=== PATIENT | female | born 1995 | race African-American/Black ===

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

== ENCOUNTER → 2017-02-23 | Outpatient (CLI) | payer MEDICAID ==
[2017-02-23 20:23] LABS: CHLAM PCR NOT DETECTED (NOT DETECT)
== END ==
LOC: LAB 18:44
PROVIDERS: ATTEND Emergency Medicine
DX: R30.0 Dysuria (principal)
CPT/HCPCS: 87086; 87491; 87591

== ENCOUNTER 2017-04-21 07:42 | Emergency (ER) | payer MEDICAID ==
--- NOTE | 2017-04-21 07:54 | ER Document Report ---
ED General <MARITZA OWEN - Last Filed: 04/21/17 09:43> - General Mode of Arrival: Medic Information source: Patient TRAVEL OUTSIDE OF THE [place] IN LAST 30 DAYS: No - HPI Onset: Just prior to arrival Onset/Duration: Sudden Quality of pain: No pain Severity: Mild Pain Level: Denies Associated symptoms: Other Exacerbated by: Denies Relieved by: Denies Similar symptoms previously: No Recently seen / treated by doctor: No <VLADISLAV RANGEL - Last Filed: 04/21/17 09:54> - General Stated Complaint: POSSIBLE OVERDOSE Time Seen by Provider: 04/21/17 07:48 Notes: 22-year-old female who got into an argument with her boyfriend presents after overdosing on her fluoxetine 20 mg at approximately 7 AM this morning patient herself denies any complaints is easily arousable. (VLADISLAV RANGEL) - Related Data Allergies/Adverse Reactions: gain laundry detergent Allergy (Uncoded 04/11/17 11:51) Past Medical History - General Information source: Relative - sisterKonstantin is bedside <MARITZA OWEN - Last Filed: 04/21/17 09:43> - Social History Smoking Status: Never Smoker Cigarette use (# per day): No Chew tobacco use (# tins/day): No Smoking Education Provided: No Family History: None Renal/ Medical History: Denies: Hx Peritoneal Dialysis - Immunizations Immunizations up to date: Yes Hx Diphtheria, Pertussis, Tetanus Vaccination: No <VLADISLAV RANGEL - Last Filed: 04/21/17 09:54> Review of Systems <MARITZA OWEN - Last Filed: 04/21/17 09:43> <VLADISLAV RANGEL - Last Filed: 04/21/17 09:54> - Review of Systems Notes: REVIEW OF SYSTEMS: CONSTITUTIONAL : Denies fever, chills, or sweats. Denies recent illness. EENT: Denies eye, ear, throat, or mouth pain or symptoms. Denies nasal or sinus congestion or discharge. Denies throat, tongue, or mouth swelling or difficulty swallowing. CARDIOVASCULAR: Denies chest pain. Denies palpitations or racing or irregular heart beat. Denies ankle edema. RESPIRATORY: Denies cough, cold, or chest congestion. Denies shortness of breath, difficulty breathing, or wheezing. GASTROINTESTINAL: Denies abdominal pain or distention. Denies nausea, vomiting , or diarrhea. Denies blood in vomitus, stools, or per rectum. Denies black, tarry stools. Denies constipation. GENITOURINARY: Denies difficulty urinating, painful urination, burning, frequency, blood in urine, or discharge. FEMALE GENITOURINARY: Denies vaginal bleeding, heavy or abnormal periods, irregular periods. Denies vaginal discharge or odor. MUSCULOSKELETAL: Denies back or neck pain or stiffness. Denies joint pain or swelling. SKIN: Denies rash, lesions or sores. HEMATOLOGIC : Denies easy bruising or bleeding. LYMPHATIC: Denies swollen, enlarged glands. NEUROLOGICAL: Denies confusion or altered mental status. Denies passing out or loss of consciousness. Denies dizziness or lightheadedness. Denies headache. Denies weakness or paralysis or loss of use of either side. Denies problems with gait or speech. Denies sensory loss, numbness, or tingling. Denies seizures. PSYCHIATRIC: admits ot self harm gesture ALL OTHER SYSTEMS REVIEWED AND NEGATIVE. PHYSICAL EXAMINATION: GENERAL: Well-appearing, well-nourished and in no acute distress. HEAD: Atraumatic, normocephalic. EYES: Pupils equal round and reactive to light, extraocular movements intact, conjunctiva are normal. ENT: Nares patent, oropharynx clear without exudates. Moist mucous membranes. NECK: Normal range of motion, supple without lymphadenopathy LUNGS: Breath sounds clear to auscultation bilaterally and equal. No wheezes rales or rhonchi. HEART: Regular rate and rhythm without murmurs ABDOMEN: Soft, nontender, nondistended abdomen. No guarding, no rebound. No masses appreciated. Female : deferred Musculoskeletal: Normal range of motion, no pitting or edema. No cyanosis. NEUROLOGICAL: Cranial nerves grossly intact. Normal speech, normal gait. Normal sensory, motor exams PSYCH: Normal mood, normal affect. SKIN: Warm, Dry, normal turgor, no rashes or lesions noted. Dictation was performed using [employer] voice recognition software (VLADISLAV RANGEL) - Vital signs Vitals: Resp 16 04/21/17 07:47 Course - Laboratory Result Diagrams: 04/21/17 08:15 04/21/17 08:15 <MARITZA OWEN - Last Filed: 04/21/17 09:43> - Laboratory Result Diagrams: 04/21/17 08:15 04/21/17 08:15 - EKG Interpretation by Me EKG shows normal: Sinus rhythm, [place], Intervals, QRS Complexes <VLADISLAV RANGEL - Last Filed: 04/21/17 09:54> - Re-evaluation Re-evalutation: 04/21/17 07:55 Patient follows commands, but she refuses to talk, she is very alert oriented in no distress. Her bottle of fluoxetine is being counted out at this time 04/21/17 09:53 pt stated to mental health that she took 2 of the 20mg prozac, otherwise she is in no distress, family is okay with discharge After performing a Medical Screening Examination, I estimate there is LOW risk for any life threatening mental health issues. At this time the patient looks extremely well and has not attempted severe self harm. I have reevaluated this patient multiple times and no significant life threatening changes are noted. The patient and I have discussed the diagnosis and risks, and we agree with discharging home with close follow-up with the understanding that symptoms and presentations can change. We also discussed returning to the Emergency Department immediately if new or worsening symptoms occur. We have discussed the symptoms which are most concerning (hallucinations, thoughts or actions of self harm or harm to others) that necessitate immediate return. (VLADISLAV RANGEL) - Vital Signs Vital signs: Temp Pulse Resp BP Pulse Ox 12 137/86 H 04/21/17 08:35 04/21/17 08:26 - Laboratory Laboratory results interpreted by me: 04/21/17 04/21/17 08:15 08:27 Chloride 109 H Carbon Dioxide 21 L Ur Leukocyte Esterase SMALL H Salicylates < 1.0 L Acetaminophen < 10 L Discharge <MARITZA OWEN - Last Filed: 04/21/17 09:43> <VLADISLAV RANGEL - Last Filed: 04/21/17 09:54> - Discharge Clinical Impression: Depression Qualifiers: Depression Type: unspecified Qualified Code(s): F32.9 - Major depressive disorder, single episode, unspecified Condition: Stable Disposition: HOME, SELF-CARE Additional Instructions: Depression Your evaluation reveals that you have mental depression. While symptoms may be vague, they often include disturbance of sleep, fatigue, loss of appetite , and general loss of interest in life. While depression may be a side effect of drugs, or a reaction to a major change in your life, many cases have no known cause. If depression is acute, and related to a major loss in your life, you can expect it to clear completely with time. If you have been depressed a long time , are prone to repeated bouts of depression or low mood, or have been thinking of suicide, get help. Depression can be treated with anti-depressant medication and counselling. Long-term depression will often take a few weeks to clear, even with appropriate medication. Follow-up care is important. Contact your physician, the hospital emergency center, crisis line, or your counsellor if you are losing control or having self-destructive thoughts. Please only take your medications as prescribed. Please follow-up with your provider at [facility], Dr. Burton. You have denied suicidal ideations and intent behind your overdose in are being discharged to follow-up. You have been provided a list of resources to assist you, to include mobile crisis. Please stop smoking marijuana it is dangerous for your health. These return if your symptoms worsen. Referrals: LEIGHANN PHILLIPS MD [Primary Care Provider] - Follow up as needed [facility] [Provider Group] - Follow up in 3-5 days
[2017-04-21 08:27] LABS: ABSOLUTE BASOPHILS # (AUTO) 0.1 10^3/uL (0.0-0.2); ABSOLUTE EOSINOPHILS # (AUTO) 0.1 10^3/uL (0.0-0.6); ABSOLUTE LYMPHOCYTES (AUTO) 2.7 10^3/uL (0.5-4.7); ABSOLUTE MONOCYTES (AUTO) 0.9 10^3/uL (0.1-1.4); ABSOLUTE NEUT (AUTO) 4.2 10^3/uL (1.7-8.2); BASOPHILS % (AUTO) 1.3 % (0-2); HEMATOCRIT 36.6 % (36.0-47.0); HGB HCT DIFFERENCE -0.6; MEAN CORPUSCULAR HEMOGLOBIN 29.1 pg (27.0-33.4); MEAN CORPUSCULAR VOLUME 88 fl (80-97); MONOCYTES % (AUTO) 10.9 % (3-13); RED BLOOD COUNT 4.13 10^6/uL (3.72-5.28); RED CELL DISTRIBUTION WIDTH 13.8 % (11.5-14.0); SEGMENTED NEUTROPHILS % (AUTO) 52.8 % (42-78)
[2017-04-21 08:30] VITALS: BP 137/86
[2017-04-21 08:40] LABS: APPEARANCE,URINE CLEAR; BILIRUBIN,URINE NEGATIVE (NEGATIVE); GLUCOSE, URINE NEGATIVE (NEGATIVE); KETONES,URINE NEGATIVE (NEGATIVE); LEUKOCYTE ESTERASE,URINE SMALL (NEGATIVE); NITRITE,URINE NEGATIVE (NEGATIVE); PROTEIN,URINE NEGATIVE (NEGATIVE); URINE SPECIFIC GRAVITY 1.004; UROBILINOGEN,URINE NEGATIVE mg/dL (<2.0)
[2017-04-21 08:43] LABS: ALANINE AMINOTRANSFERASE 31 U/L (9-52); ALBUMIN 4.2 g/dL (3.5-5.0); ALKALINE PHOSPHATASE 45 U/L (38-126); ANION GAP 13 (5-19); ASPARTATE AMINO TRANSFERASE 24 U/L (14-36); BILIRUBIN,DIRECT 0.4 mg/dL (0.0-0.4); BILIRUBIN,TOTAL 0.7 mg/dL (0.2-1.3); BLOOD UREA NITROGEN 8 mg/dL (7-20); CALCIUM 9.5 mg/dL (8.4-10.2); CARBON DIOXIDE 21 mmol/L (22-30); CHLORIDE 109 mmol/L (98-107); CREATININE RESULT 0.65 mg/dL (0.52-1.25); GLUCOSE 84 mg/dL (75-110); POTASSIUM 4.3 mmol/L (3.6-5.0); SODIUM 142.7 mmol/L (137-145)
[2017-04-21 08:46] LABS: ALCOHOL < 10 mg/dL (NONE DETECTED)
[2017-04-21 08:52] LABS: URINE BARBITURATES SCREEN NEGATIVE; URINE METHADONE SCREEN NEGATIVE; URINE OPIATES LOW NEGATIVE; URINE PHENCYCLIDINE SCREEN NEGATIVE
--- NOTE | 2017-04-21 09:43 | PSYCHOLOGICAL NOTE ---
Psych Note - Psych Note Psych Note: Patient is a 22-year-old female who presents to [facility] ER secondary to an argument with her boyfriend and allegedly overdose of her prescription of fluoxetine. Patient states she was recently prescribed the pills, and reports she took 2 additional pills because she did not feel they were working. Patient states she was upset but denies attempting suicide or wanting to . Patient reports she is seen by Dr. Burton at [facility]. She additionally reports she does not take the pills daily as prescribed. Discussed with patient that if it is difficult to remember to take her medications she could a) set an alarm , or b) place the pill bottle next to her toothbrush so she would remember to take them every night. Patient denies wanting to by suicide. Patient does acknowledge some depression, For which she is seeking services from [facility]. Patient's sister is bedside and patient provided verbal consent to speak with her and in front of her. Patient denies wanting to harm herself or anyone else. Patient's sister, Cuco states she has no concerns for the patient's safety in regards to thoughts of suicide. Sister reports she is agreeable to provide additional support and check in with her to ensure ongoing safety and continuity of care with her provider. Patient is alert and oriented. Mood is euthymic with normal affect. Patient denies suicidal/homicidal ideations, intent, plan, means. Patient denies A/VH; delusions not noted. Thought processes were guarded. Conversational speech was low for rate, tone, and prosody. Intellectual abilities were estimated within average range. Attention and focus are poor. Insight, judgment, impulse control are poor. 311 (F 32.9) unspecified depressive disorder, per history Patient's presenting symptoms are similar to that of a depressive disorder and cause clinically significant distress At this time and in the setting there is not enough information to make a more specific diagnosis Patient is prescribed an antidepressant R/O Cannabis Abuse Patient is psychiatrically cleared. Patient is recommended to follow up with her provider at [facility]. Patient has denied suicidal ideations and/ or suicide intent behind her allegedly overdose. Patient's prescription pill bottle was filled 04/16 175 pills and is missing 5 pills total. Patient acknowledges she is not taking her medications as prescribed. Patient provided examples of behavioral modification techniques to assist her in remembering to take her medications. Patient encouraged to stop smoking marijuana. Patient is recommended to follow-up with her provider at [place].
--- NOTE | 2017-04-21 14:00 | EKG REPORT ---
SEVERITY:- NORMAL ECG - SINUS RHYTHM : Confirmed by: Thong Ventura MD 21-Apr-2017 13:59:54
== END 2017-04-21 10:05 | disposition home or self-care (01) ==
LOC: ER 07:42
DX: F32.9 Major depressive disorder, single episode, unspecified (principal); T43.221A Poisoning by selective serotonin reuptake inhibitors, accidental (unintentional), initial encounter
CPT/HCPCS: 36415; 80053; 80307; 81001; 84703; 85025; 93005; 93010; 99285

== ENCOUNTER 2017-06-04 17:42 | Emergency (ER) | payer MEDICAID, OTHER ==
--- NOTE | 2017-06-04 18:56 | ER Document Report ---
HPI - HPI Pain Level: 5 Notes: Patient is a 22-year-old female with a history of asthma who presents to the ED complaining of nasal congestion/discharge, sinus pressure and pain, sinus headache, irritated throat, and dry nonproductive occ cough secondarily to throat irritation 2 weeks. Patient states that she usually performs natural medicine and was unable to improve any of her symptoms. Patient states that she woke up this morning her symptoms were a lot worse and had trouble leaning forward because of the pressure in her sinuses. She is still eating and drinking without any difficulties. She is urinating normally and having normal bowel movements. Patient does admit to smoking but denies IV drug use. Denies any fever, head injury, neck pain, chest pain, palpitations, syncope, shortness of breath, wheeze, dyspnea, abdominal pain, nausea/vomiting/diarrhea, urinary retention, dysuria, hematuria, or rash. - ROS Notes: REVIEW OF SYSTEMS: CONSTITUTIONAL : Denies fever, chills, or sweats. Denies recent illness. EENT: see hpi CARDIOVASCULAR: Denies chest pain. Denies palpitations or racing or irregular heart beat. Denies ankle edema. RESPIRATORY: see hpi. Denies shortness of breath, difficulty breathing, or wheezing. GASTROINTESTINAL: Denies abdominal pain or distention. Denies nausea, vomiting , or diarrhea. Denies blood in vomitus, stools, or per rectum. Denies black, tarry stools. Denies constipation. GENITOURINARY: Denies difficulty urinating, painful urination, burning, frequency, blood in urine, or discharge. MUSCULOSKELETAL: Denies back or neck pain or stiffness. Denies joint pain or swelling. SKIN: Denies rash, lesions or sores. NEUROLOGICAL: see hpi. Denies confusion or altered mental status. Denies passing out or loss of consciousness. Denies dizziness or lightheadedness. Denies problems with gait or speech. Denies sensory loss, numbness, or tingling. Denies seizures. ALL OTHER SYSTEMS REVIEWED AND NEGATIVE. Dictation was performed using [employer] recognition software - CONSTITUTIONAL Constitutional: DENIES: Fever, Chills - EENT EENT: REPORTS: Sore Throat - NEURO Neurology: REPORTS: Headache - RESPIRATORY Respiratory: REPORTS: Coughing - REPRODUCTIVE Reproductive: REPORTS: : Past Medical History - Social History Smoking Status: Unknown if Ever Smoked Chew tobacco use (# tins/day): No Frequency of alcohol use: None Drug Abuse: None Family History: None Patient has suicidal ideation: No Patient has homicidal ideation: No Pulmonary Medical History: Reports: Hx Asthma - as a child Renal/ Medical History: Denies: Hx Peritoneal Dialysis Psychiatric Medical History: Reports: Hx Depression - Immunizations Immunizations up to date: Yes Hx Diphtheria, Pertussis, Tetanus Vaccination: No Vertical Provider Document - CONSTITUTIONAL Agree With Documented VS: Yes Notes: PHYSICAL EXAMINATION: GENERAL: Well-appearing, well-nourished and in no acute distress. A&Ox4 HEAD: Atraumatic, normocephalic. EYES: Pupils equal round and reactive to light, extraocular movements intact, sclera anicteric, conjunctiva are normal. ENT: EAC clear b/l. TM's intact b/l without erythema, fluid, or perforation. Nares patent, mild erythema, and with yellow discharge. oropharynx clear without exudates. No tonsilar hypertrophy or erythema. Moist mucous membranes. + sinus tenderness (maxillary). + light test. NECK: Normal range of motion, supple without lymphadenopathy. No rigidity/ meningismus. LUNGS: Breath sounds clear to auscultation bilaterally and equal. No wheezes rales or rhonchi. HEART: Regular rate and rhythm without murmurs, rubs, gallops. Extremities: No cyanosis, clubbing, or edema b/l. Peripheral pulses 2+. Capillary refill less than 3 seconds. NEUROLOGICAL: Cranial nerves grossly intact. Normal speech, normal gait. Normal sensory, motor exams PSYCH: Normal mood, normal affect. SKIN: Warm, Dry, normal turgor, no rashes or lesions noted. - INFECTION CONTROL TRAVEL OUTSIDE OF THE [place] IN LAST 30 DAYS: No Course - Re-evaluation Re-evalutation: 06/04/17 19:16 Patient is an afebrile, well-hydrated, 22-year-old female who presents the ED with acute sinusitis. Vitals are stable. PE is otherwise unremarkable. No imaging or lab tests warranted at this time based on H&P. Low suspicion for any ACS, PE, pneumothorax, pericarditis, dissection, respiratory compromise, severe dehydration, sepsis, meningitis, or other systemic emergent condition at this time. Patient is aware that her condition can change from initial presentation and she needs to monitor symptoms closely and seek medical attention for any acute changes. I will send her home with a prescription for Augmentin. Recommend conservative measures for symptoms. Recheck with your PCM in 3-5 days. Return to the ED with any worsening/concerning symptoms otherwise as reviewed in discharge. Patient is in agreement. Discharge - Discharge Clinical Impression: Acute sinusitis Qualifiers: Sinusitis location: maxillary Recurrence: not specified as recurrent Qualified Code(s): J01.00 - Acute maxillary sinusitis, unspecified Condition: Stable Disposition: HOME, SELF-CARE Instructions: Augmentin ([facility]), Sinusitis ([facility]) Additional Instructions: Maintain adequate fluid intake Take meds as directed tylenol/ibuprofen as needed over the counter cold medication as needed for symptoms Humidified air may help with a cough or cool night air F/u: with your PCM in 3-5 days for a recheck Return to the ED with any fever, worsening pain, chest pain, palpitations, syncope, worsening PABLO, neck pain/stiffness, shortness of breath, wheezing, drooling, trouble swallowing/breathing, abdominal pain, n/v/d, rash, or worsening/concerning symptoms otherwise. Prescriptions: Albuterol Sulfate [Proair HFA Inhalation Aerosol 8.5 gm MDI] 2 puff IH Q4H PRN # 1 mdi PRN Reason: Amox Tr/Potassium Clavulanate [Augmentin 875-125 Tablet] 1 tab PO BID 10 Days # 20 tablet Referrals: [facility] [Provider Group] - Follow up as needed [facility] [Provider Group] - Follow up as needed
[2017-06-04 19:06] VITALS: BP 126/73
== END 2017-06-04 19:07 | disposition home or self-care (01) ==
LOC: ER 17:42
DX: J01.00 Acute maxillary sinusitis, unspecified (principal); R09.81 Nasal congestion; R09.89 Other specified symptoms and signs involving the circulatory and respiratory systems; R51 Headache; R05 Cough
CPT/HCPCS: 99283

== ENCOUNTER 2017-07-08 08:10 | Emergency (ER) | payer SELFPAY ==
--- NOTE | 2017-07-08 08:30 | ER Document Report ---
ED Extremity Problem, Lower - General Chief Complaint: Ankle Pain Stated Complaint: BACK PAIN Time Seen by Provider: 07/08/17 08:30 Information source: Patient, Friend TRAVEL OUTSIDE OF THE [place] IN LAST 30 DAYS: No - HPI Notes: 22-year-old female presents today with complaints of right ankle pain, right foot pain and lower back pain after she reports a being that was on top of the window was at a hotel fell and hit her in the ankle-foot on the right and lower back. Denies any head trauma or change in level consciousness. States pain is 9 out of 10, throbbing achy. Has not taken any [id number] medication. patient unable to bear full weight. Patient is unsure . States pain is constant, nothing makes better nothing makes it worse. Denies any numbness or tingling in bilateral lower extremities, denies any issues with bowel or bladder dysfunction, saddle anesthesia since onset of symptoms since this occurred. Denies any fevers or chills. Denies any chest pain, shortness of breath, nausea, vomiting, diarrhea, headache, blurred vision, double vision, loss of vision. - Related Data Allergies/Adverse Reactions: gain laundry detergent Allergy (Uncoded 07/08/17 08:54) Past Medical History - General Information source: Patient - Social History Smoking Status: Unknown if Ever Smoked Family History: None Pulmonary Medical History: Reports: Hx Asthma - as a child Renal/ Medical History: Denies: Hx Peritoneal Dialysis Psychiatric Medical History: Reports: Hx Depression - Immunizations Immunizations up to date: Yes Hx Diphtheria, Pertussis, Tetanus Vaccination: No Review of Systems - Review of Systems Constitutional: No symptoms reported EENT: No symptoms reported Cardiovascular: No symptoms reported Respiratory: No symptoms reported Gastrointestinal: No symptoms reported Genitourinary: No symptoms reported Female Genitourinary: No symptoms reported Musculoskeletal: See HPI Skin: No symptoms reported Hematologic/Lymphatic: No symptoms reported Neurological/Psychological: No symptoms reported Physical Exam - Vital signs Vitals: Temp Pulse Resp BP Pulse Ox 98.1 F 62 16 108/52 L 100 07/08/17 08:15 07/08/17 08:15 07/08/17 08:15 07/08/17 08:15 07/08/17 08:15 Interpretation: Normal - General General appearance: Appears well In distress: None - Respiratory Respiratory status: No respiratory distress Chest status: Nontender Breath sounds: Normal Chest palpation: Normal - Cardiovascular Rhythm: Regular Heart sounds: Normal auscultation Pulses: Normal: Radial Normal capillary refill: Yes - Back Back: Tender - straight leg test negative. Pain with flexion and extension at 30 degrees. Normal hip rotation. DTR +2 in BLE equally. Normal motor and sensory function. Distal pulses + 2 BLE equally. Noted paraspinal tenderness near L2 and L3. No spinal tenderness . No CVA tenderness bilaterally. Femoral pulses + 2 bilaterally and equally. No abrasions, scars, lacerations, ecchymosis of any recent trauma. - Extremities Ankle: Tender - right ankle with tenderness on lateral aspect of ankle. no pain with inversion. squeeze test negative. dtr +2 BLE. Limited APROM. distal pulses + 2 BLE equally. Full motor and sensory function of bilateral lower extremities. No noted open wounds or abrasion. Normal gait. No vascular compromise. Peroneal nerve is intact with strong eversion and plantar flexion. Negative anterior drawer test. left ankle wnl. Foot: Tender - right foot with STS and tenderness on 2nd and 3rdmetatarsal bones with palpation. Unable to palpate a step-off. No open lesions. squeeze test negative. dtr +2 BLE. Limited APROM. distal pulses + 2 in BUE. full motor and sensory function. No vascular compromise. Ankle exam within normal limits. No noted lacerations, lesions, ulcers or break in the skin. 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 We will give her crutches and an right Aircast. Follow-up with immigration specialist within 3 days. Follow [facility] therapy. Use crutches as directed. Follow-up with PCP within 3 days. Return to emergency room if symptoms become worse. Patient agreed and verbalized understanding of plan of care. Patient was discharged home. cms intact, sensory motor function intact in bilateral lower extremities prior to splint application fiberglass splint placed without incident. cms intact 20 minutes after splint application. Splint is in good alignment. Bilateral lower extremities with motor and sensory function intact 20 minutes after application. Pt stated that splint felt comfortable. 07/08/17 11:54 - Vital Signs Vital signs: Temp Pulse Resp BP Pulse Ox 98.1 F 62 16 108/52 L 100 07/08/17 08:15 07/08/17 08:15 07/08/17 08:15 07/08/17 08:15 07/08/17 08:15 Discharge - Discharge Clinical Impression: Right ankle sprain Qualifiers: Encounter type: initial encounter Involved ligament of ankle: unspecified ligament Qualified Code(s): S93.401A - Sprain of unspecified ligament of right ankle, initial encounter Right foot sprain Qualifiers: Encounter type: initial encounter Qualified Code(s): S93.601A - Unspecified sprain of right foot, initial encounter Back pain Qualifiers: Back pain location: low back pain Chronicity: acute Back pain laterality: bilateral Sciatica presence: without sciatica Qualified Code(s): M54.5 - Low back pain Condition: Good Disposition: HOME, SELF-CARE Instructions: Sprained Ankle ([facility]), Sprain ([facility]) Additional Instructions: Ankle Stirrup Splint You are to use an ankle brace called a stirrup splint. This type of brace allows you to place greater stresses on the ankle without risk of re-injury, and is often used for more severe ankle injuries such as avulsion fractures and ligament ruptures. The splint can be worn over a sock or tape. For proper support, wear the splint with a shoe over it. It's important that the splint fit properly. Adjust the heel tension, if needed. If your splint has air bladders, peel back the bottom of each air bladder, then move the Velcro attachment of the heel strap up or down. Air bladder pressure can be adjusted by pulling up the valve at the top, threading the air tube down into the main bladder, then blowing air into the bladder or squeezing it out. The two sides of the stirrup can be moved forward or back on your ankle by changing the attachment of the main straps. If you are unable to use the ankle comfortably in the splint, return for re -evaluation.LOW BACK PAIN: Three out of every four people will have an episode of disabling back pain during their lifetime. Most commonly the pain is due to straining of the muscles and ligaments in the low back. Usual treatment includes: (1) Rest on a firm surface. Avoid lying on your stomach. (2) Ice pack the painful area. After a few days, gentle heat may be used intermittently to relax the area, or ice packs can be continued. (3) Medication may be needed -- muscle relaxers and antiinflammatory medicines are commonly used. (4) As the back improves, exercises are prescribed to strengthen the back and abdominal muscles. Your doctor will advise you on the proper care for your back at each stage in your recovery. You may be better in a few days -- or healing may take several weeks. If new symptoms of a "herniated disc" (radiation of pain, numbness, or tingling down the back of the leg or weakness in the leg) occur, you should be re-examined. Further testing may be necessary. MUSCLE RELAXERS: Muscle relaxing medications are usually prescribed for acute muscle spasm or injury to the neck and back. They are often combined with antiinflammatory pain medication for increased relief. You may stop the muscle relaxer when the pain and stiffness have improved. Start the medication again if spasms recur. Muscle relaxers may cause drowsiness, especially with the first dose. Do not operate machinery or drive while under the effects of the medication. Most muscle relaxers last up to 24 hours. Do not combine the medication with alcohol. ICE PACKS: Apply ice packs frequently against the painful area. Many different schedules are recommended, such as "20 minutes on, 20 minutes off" or "one hour ice, two hours rest." If you need to work, you may need to go longer between ice treatments. You should plan to have the area ice packed AT LEAST one fourth of the time. The ice should be applied over the wrap, tape, or splint, or over a layer of cloth -- not directly against the skin. Some ice bags have a built-in cloth and can be put directly on the skin. WARM PACKS: After approximately two days, apply gentle heat (such as a heating pad or hot water bottle) for about 20 to 30 minutes about every two hours -- at least four times daily. Warmth and elevation will help you make a more rapid recovery , and will ease the pain considerably. Do not use HOT heat, and never apply heat for longer than 30 minutes. The continuous heat can invisibly damage skin and muscles -- even when no burn is seen on the surface. Damaged muscles can make you MORE sore. FOLLOW-UP CARE: If you have been referred to a physician for follow-up care, call the physician s office for an appointment as you were instructed or within the next two days. If you experience worsening or a significant change in your symptoms, notify the physician immediately or return to the Emergency Department at any time for re-evaluation. Please follow up with the [facility] [address] [place] [id number] Return immediately for any new or worsening symptoms. Follow up with primary care provider, call tomorrow to make followup appointment. Prescriptions: Cyclobenzaprine HCl [Flexeril 10 mg Tablet] 10 mg PO TIDP PRN #9 tab PRN Reason: Referrals: LEIGHANN PHILLIPS MD [Primary Care Provider] - Follow up as needed
[2017-07-08] MEDS ORDERED: ACETAMINOPHEN 325 MG TABLET PO ONE (08:54)
--- NOTE | 2017-07-08 10:50 | RADIOLOGY REPORT (SQ) ---
EXAM DESCRIPTION: ANKLE RIGHT COMPLETE COMPLETED DATE/TIME: 07/08/2017 10:43 am REASON FOR STUDY: beam fell on her back, right ankle/foot, + pain COMPARISON: None. NUMBER OF VIEWS: Three views. TECHNIQUE: AP, lateral, and oblique radiographic images acquired of the right ankle. LIMITATIONS: None. FINDINGS: MINERALIZATION: Normal. BONES: No acute fracture or dislocation. No worrisome bone lesions. JOINTS: No effusions. SOFT TISSUES: No soft tissue swelling. No foreign body. OTHER: No other significant finding. IMPRESSION: NEGATIVE STUDY OF THE RIGHT ANKLE. NO RADIOGRAPHIC EVIDENCE OF ACUTE INJURY. TECHNICAL DOCUMENTATION: JOB ID: [id number] 1988 [employer]- All Rights Reserved
--- NOTE | 2017-07-08 10:51 | RADIOLOGY REPORT (SQ) ---
EXAM DESCRIPTION: FOOT RIGHT COMPLETE COMPLETED DATE/TIME: 07/08/2017 10:43 am REASON FOR STUDY: beam fell on her back, right ankle/foot, + pain COMPARISON: None. NUMBER OF VIEWS: Three views. TECHNIQUE: AP, lateral and oblique radiographic images acquired of the right foot. LIMITATIONS: None. FINDINGS: MINERALIZATION: Normal. BONES: No acute fracture or dislocation. No worrisome bone lesions. JOINTS: No effusions. SOFT TISSUES: No soft tissue swelling. No foreign body. OTHER: No other significant finding. IMPRESSION: NEGATIVE STUDY OF THE RIGHT FOOT. NO RADIOGRAPHIC EVIDENCE OF ACUTE INJURY. TECHNICAL DOCUMENTATION: JOB ID: [id number] [employer]- All Rights Reserved
--- NOTE | 2017-07-08 10:59 | RADIOLOGY REPORT (SQ) ---
EXAM DESCRIPTION: L SPINE WHOLE COMPLETED DATE/TIME: 07/08/2017 10:51 am REASON FOR STUDY: beam fell on her back, right ankle/foot, + pain COMPARISON: None. NUMBER OF VIEWS: Five views including obliques. TECHNIQUE: AP, lateral, oblique, and sacral radiographic images acquired of the lumbar spine. LIMITATIONS: None. FINDINGS: MINERALIZATION: Normal. SEGMENTATION: Normal. No transitional anatomy. ALIGNMENT: Normal. VERTEBRAE: Maintained height. No fracture or worrisome bone lesion. DISCS: Preserved height. No significant osteophytes or end plate irregularity. POSTERIOR ELEMENTS: Pedicles and facets are intact. No pars defect or posterior arch defects. HARDWARE: None in the spine. PARASPINAL SOFT TISSUES: Normal. PELVIS: Intact as visualized. No fractures or worrisome bone lesions. SI joints intact. OTHER: No other significant finding. IMPRESSION: NORMAL 5 VIEW LUMBAR SPINE. TECHNICAL DOCUMENTATION: JOB ID: [id number] [employer]- All Rights Reserved
[2017-07-08 12:12] VITALS: BP 104/85
== END 2017-07-08 12:12 | disposition home or self-care (01) ==
LOC: ER 08:10
DX: S93.401A Sprain of unspecified ligament of right ankle, initial encounter (principal); S93.601A Unspecified sprain of right foot, initial encounter; M25.571 Pain in right ankle and joints of right foot; M79.671 Pain in right foot; M54.5 Low back pain; W20.8XXA Other cause of strike by thrown, projected or falling object, initial encounter; Y93.84 Activity, sleeping; Y92.59 Other trade areas as the place of occurrence of the external cause; Z91.048 Other nonmedicinal substance allergy status
CPT/HCPCS: 99284; 81025; 73610; 73630; 72110; L1902

== ENCOUNTER 2017-08-02 09:14 | Emergency (ER) | payer SELFPAY ==
[2017-08-02] MEDS ORDERED: METHOCARBAMOL 500 MG TABLET PO ONE (10:38)
[2017-08-02] MEDS ORDERED: LIDOCAINE 5% (700 MG) TRANSDERMAL ADH..PATCH TP ONE (10:38)
--- NOTE | 2017-08-02 12:11 | RADIOLOGY REPORT (SQ) ---
EXAM DESCRIPTION: CT THORACIC SPINE WITHOUT COMPLETED DATE/TIME: 08/02/2017 11:56 am REASON FOR STUDY: injury, continued pain and limited rom COMPARISON: Lumbar spine CT 08/02/2017 Lumbar spine plain films 07/08/2017 TECHNIQUE: Axial images acquired through the thoracic spine without intravenous contrast. Images re viewed with lung, soft tissue and bone windows. Reconstructed coronal and sagittal MPR images review ed. Images stored on PACS. All CT scanners at this facility use dose modulation, iterative reconstruction, and/or weight based d osing when appropriate to reduce radiation dose to as low as reasonably achievable (ALARA). [facility]: Dose Right [facility]: CareDose [facility]: Dose Right [facility]: Teradose 4D [facility]: Hipcamp RADIATION DOSE: CT Rad equipment meets quality standard of care and radiation dose reduction techniq ues were employed. CTDIvol: 17.4 mGy. DLP: 528 mGy-cm. mGy. LIMITATIONS: None. FINDINGS: VISUALIZED LUNGS: No acute opacities. No pneumothorax. SOFT TISSUES: No soft tissue swelling. No masses. VERTEBRAL BODIES: No fractures. No dislocation. No acute findings. DISCS: No significant disc space narrowing. ALIGNMENT: Normal. TRANSVERSE PROCESSES, POSTERIOR ELEMENTS: No fractures. No dislocation. No acute findings. HARDWARE: None in the spine. VISUALIZED RIBS: No fractures. OTHER: No other significant finding. IMPRESSION: NORMAL CT OF THE THORACIC SPINE. TECHNICAL DOCUMENTATION: JOB ID: [id number] Quality ID # [id number]: Final reports with documentation of one or more dose reduction techniques (e.g., Au tomated exposure control, adjustment of the mA and/or kV according to patient size, use of iterative reconstruction technique) 2010 [employer]- All Rights Reserved Reading location - IP/workstation name: [email or web address]
--- NOTE | 2017-08-02 12:13 | RADIOLOGY REPORT (SQ) ---
EXAM DESCRIPTION: CT LUMBAR SPINE WITHOUT COMPLETED DATE/TIME: 08/02/2017 11:56 am REASON FOR STUDY: injury, continued pain and limited rom COMPARISON: CT thoracic spine same date Lumbar spine plain films 07/08/2017 TECHNIQUE: Axial images acquired through the lumbar spine without intravenous contrast. Images revi ewed with lung, soft tissue and bone windows. Reconstructed coronal and sagittal MPR images reviewed . All images stored on PACS. All CT scanners at this facility use dose modulation, iterative reconstruction, and/or weight based d osing when appropriate to reduce radiation dose to as low as reasonably achievable (ALARA). [facility]: Dose Right [facility]: CareDose [facility]: Dose Right [facility]: Teradose 4D [facility]: [employer] RADIATION DOSE: 15.6 mGy mGy. LIMITATIONS: None. FINDINGS: SEGMENTATION: Normal. No transitional anatomy. ALIGNMENT: Normal. VERTEBRAL BODIES: No fractures. No dislocation. No acute findings. DISCS: No significant protrusions. Study limited by lack of intrathecal contrast. PEDICLES, TRANSVERSE PROCESSES: No fractures. No dislocation. No acute findings. FACETS, POSTERIOR ELEMENTS: No fractures. No dislocation. No spinal stenosis. HARDWARE: None in the spine. VISUALIZED RIBS: No fractures. SOFT TISSUES: No significant or acute finding in adjacent soft tissues. OTHER: No other significant finding. IMPRESSION: NORMAL CT OF THE LUMBAR SPINE. TECHNICAL DOCUMENTATION: JOB ID: [id number] Quality ID # [id number]: Final reports with documentation of one or more dose reduction techniques (e.g., Au tomated exposure control, adjustment of the mA and/or kV according to patient size, use of iterative reconstruction technique) 2010 [employer]- All Rights Reserved Reading location - IP/workstation name: [email or web address]
--- NOTE | 2017-08-02 12:21 | ER Document Report ---
ED Neck/Back Problem - General Chief Complaint: Back Pain Stated Complaint: BACK PAIN Time Seen by Provider: 08/02/17 10:07 Mode of Arrival: Wheelchair Information source: Patient Notes: Patient is a 22-year-old female who presents to the ER today for back pain for over a month in her low back, worse on the right side radiating down her right leg. Patient states that she was an accident in a motel where a beam fell on her and that is what caused her initial injury and back pain. Patient was evaluated here on 08 July and had negative x-rays of the back was sent home with Flexeril. Patient states that she has been having to take much more Flexeril than she is supposed to because of the pain. She states that she cannot barely stand, walk, sit for too long or do any normal activities because of the pain. She denies any numbness or tingling anywhere, loss of bladder or bowel function. TRAVEL OUTSIDE OF THE [place] IN LAST 30 DAYS: No - Related Data Allergies/Adverse Reactions: fluoxetine Adverse Reaction (Intermediate, Verified 08/02/17 09:15) Delirium gain laundry detergent Allergy (Uncoded 07/08/17 08:54) Past Medical History - General Information source: Patient - Social History Smoking Status: Unknown if Ever Smoked Family History: None Patient has suicidal ideation: No Patient has homicidal ideation: No Pulmonary Medical History: Reports: Hx Asthma - as a child Renal/ Medical History: Denies: Hx Peritoneal Dialysis Psychiatric Medical History: Reports: Hx Depression - Immunizations Immunizations up to date: Yes Hx Diphtheria, Pertussis, Tetanus Vaccination: No Review of Systems - Review of Systems Constitutional: No symptoms reported EENT: No symptoms reported Cardiovascular: No symptoms reported Respiratory: No symptoms reported Gastrointestinal: No symptoms reported Genitourinary: No symptoms reported Female Genitourinary: No symptoms reported Musculoskeletal: See HPI Skin: No symptoms reported Hematologic/Lymphatic: No symptoms reported Neurological/Psychological: No symptoms reported Physical Exam - Vital signs Vitals: Temp Pulse Resp BP Pulse Ox 98.0 F 62 14 116/66 99 08/02/17 09:44 08/02/17 09:44 08/02/17 09:44 08/02/17 09:44 08/02/17 09:44 - Notes Notes: PHYSICAL EXAMINATION: GENERAL: Uncomfortable appearing, tearful, but in no acute distress. HEAD: Atraumatic, normocephalic. EYES: Pupils equal round and reactive to light, extraocular movements intact, sclera anicteric, conjunctiva are normal. NECK: Normal range of motion, supple without lymphadenopathy LUNGS: CTAB and equal. No wheezes rales or rhonchi. HEART: Regular rate and rhythm without murmurs ABDOMEN: Soft, no tenderness. No guarding, no rebound BACK: Right SI joint tenderness, thoracic and lumbar vertebral tenderness, limited range of motion secondary to pain at the hips GI/: no CVA tenderness EXTREMITIES: Normal range of motion, no pitting edema. No cyanosis. NEUROLOGICAL: Cranial nerves grossly intact. Normal sensory/motor exams. PSYCH: Tearful SKIN: Warm, Dry, normal turgor, no rashes or lesions noted Course - Re-evaluation Re-evalutation: 08/02/17 12:20 Due to patient's limited range of motion and recent injury, I did order CAT scans of the thoracic and lumbar spine due to tenderness, they were negative for any acute pathology. Patient will be sent home with a different muscle relaxer and lidocaine patch. - Vital Signs Vital signs: Temp Pulse Resp BP Pulse Ox 98.0 F 62 14 116/66 99 08/02/17 09:44 08/02/17 09:44 08/02/17 09:44 08/02/17 09:44 08/02/17 09:44 Discharge - Discharge Clinical Impression: Low back pain Qualifiers: Chronicity: unspecified Back pain laterality: bilateral Sciatica presence: with sciatica Sciatica laterality: sciatica of right side Qualified Code(s): M54.41 - Lumbago with sciatica, right side Condition: Stable Disposition: HOME, SELF-CARE Instructions: Ice Packs ([facility]), Low Back Pain ([facility]), Warm Packs ([facility]) Additional Instructions: Return immediately for any new or worsening symptoms. Follow up with primary care provider, call tomorrow to make followup appointment. Prescriptions: Lidocaine 1 each TP DAILY #30 adh..patch Methocarbamol [Robaxin 500 mg Tablet] 1,000 mg PO BID PRN #40 tablet PRN Reason: Prednisone [Deltasone 20 mg Tablet] 3 tab PO DAILY 5 Days tablet Referrals: LEIGHANN PHILLIPS MD [Primary Care Provider] - Follow up as needed
[2017-08-02 12:41] VITALS: BP 117/72
== END 2017-08-02 12:51 | disposition home or self-care (01) ==
LOC: ER 09:14
DX: M54.41 Lumbago with sciatica, right side (principal); M54.9 Dorsalgia, unspecified; M79.604 Pain in right leg; Z79.899 Other long term (current) drug therapy
CPT/HCPCS: 72128; 72131; 81025; 99284

== ENCOUNTER 2017-08-26 16:38 | Emergency (ER) | payer SELFPAY ==
--- NOTE | 2017-08-26 18:47 | ER Document Report ---
ED Neck/Back Problem - General Chief Complaint: Back Pain Stated Complaint: BACK PAIN, RIGHT SIDE PAIN, SWELLING Time Seen by Provider: 08/26/17 18:18 Mode of Arrival: Ambulatory Information source: Patient TRAVEL OUTSIDE OF THE [place] IN LAST 30 DAYS: No - HPI Patient complains to provider of: Pain, Upper back, Lower back Notes: Patient is here with complaints of right-sided back pain. The patient has been seen here 2 other times for similar complaints. She was initially seen in June after a blind fell off of a wall and hit her in the back. She had plain x-rays done at that time that were unremarkable. She was seen here last month for worsening pain and swelling to the right side of her back and had a CT of the thoracic and lumbar spine which was unremarkable. States that she has periods when she feels better and periods when she feels like her back is swollen and has pain. At this point she states that she has pain and swelling to the right side of her back. She denies any new trauma or fall. She denies bowel or bladder dysfunction. She denies fevers. She denies blood thinners. She denies nausea, vomiting, diarrhea. She denies dysuria or hematuria. No rash. She denies any numbness, tingling, weakness. No abdominal pain. Pain is worse with movement and touching the area, it seems to get better after the area is massaged and with muscle relaxers that she had in the past. - Related Data Allergies/Adverse Reactions: fluoxetine Adverse Reaction (Intermediate, Verified 08/26/17 16:40) Delirium gain laundry detergent Allergy (Uncoded 07/08/17 08:54) Past Medical History - Social History Smoking Status: Current Every Day Smoker Chew tobacco use (# tins/day): No Frequency of alcohol use: Occasional Drug Abuse: None Family History: None Patient has suicidal ideation: No Patient has homicidal ideation: No Pulmonary Medical History: Reports: Hx Asthma - as a child Renal/ Medical History: Denies: Hx Peritoneal Dialysis Psychiatric Medical History: Reports: Hx Bipolar Disorder, Hx Depression - anxiety - Immunizations Immunizations up to date: Yes Hx Diphtheria, Pertussis, Tetanus Vaccination: No Review of Systems - Review of Systems -: Yes All other systems reviewed and negative Physical Exam - Vital signs Vitals: Temp Pulse Resp BP Pulse Ox 98.8 F 79 16 120/62 100 08/26/17 16:45 08/26/17 16:45 08/26/17 16:45 08/26/17 16:45 08/26/17 16:45 - Notes Notes: GENERAL: alert, cooperative, nontoxic, no distress. HEAD: normocephalic, atraumatic EYES: conjunctiva pink without discharge, no external redness or swelling. EARS: no external swelling, no external redness NOSE: atraumatic, no external swelling MOUTH/THROAT: mucous membranes moist and pink, posterior pharynx without erythema, swelling, exudate. No trismus or drooling. NECK: soft, supple, full range of motion, no meningismus. CHEST: no distress, lungs clear and equal throughout. No wheezing, rales, rhonchi. CARDIAC: regular rate and rhythm, no murmur, normal capillary refill, normal pulses. No peripheral edema noted. ABDOMEN: soft, nontender, no pusatile mass. BACK: No CVA tenderness. Patient is noted to have obvious muscle spasm to the right side thoracic and lumbar paraspinal muscles. Skin is normal. Tenderness to palpation in this area. No redness. Slightly limited range of motion secondary to pain. EXTREMITIES: full range of motion of all extremities. No redness, no swelling. NEURO: alert and oriented A&O x 3, no focal deficits, full range of motion of all extremities. 5 out of 5 flexion and extension of the lower extremities bilaterally. Patellar and Achilles deep tendon reflexes are +2 bilaterally. Normal sensation with no saddle anesthesia. Patient can dorsiflex the great toes bilaterally. PYSCH: appropriate mood, affect. Patient is cooperative. SKIN: pink, warm, dry, no rash. Course - Re-evaluation Re-evalutation: 08/26/17 18:46 Patient is nontoxic appearing with stable vitals. The patient has had intermittent right-sided back pain since June. She been seen for this twice. She has had plain films as well as a CT of her thoracic and lumbar spine which were unremarkable. She is noted to have some obvious muscle spasm to the right side of her back. There is no signs of infection. She has a normal neurological exam with no sign of cauda equina, epidural abscess/bleed, discitis, osteomyelitis, zoster. Is no sign of abscess. This appears to be muscle spasm as a source of her pain. At this point the patient will be discharged home with a prescription for Naprosyn and Valium. She will be referred to orthopedics due to her chronic pain. She is instructed to apply heat to the sore area, had a area massaged, follow-up sooner for increasing pain , high fever, difficulty controlling her bowels or bladder, or for any further concerns. I offered her a shot of Toradol here in emergency department, she declines she states she does not know what that medication is and she is afraid she will have a reaction to it. The patient's emergency department workup and current diagnosis were explained to the patient and or family. Follow-up instructions were provided. Medications if prescribed were discussed. Instructions for when to return to the emergency department including specific worrisome symptoms were discussed with the patient and/or family. - Vital Signs Vital signs: Temp Pulse Resp BP Pulse Ox 98.8 F 79 16 120/62 100 08/26/17 16:45 08/26/17 16:45 08/26/17 16:45 08/26/17 16:45 08/26/17 16:45 Discharge - Discharge Clinical Impression: Lumbar paraspinal muscle spasm Condition: Stable Disposition: HOME, SELF-CARE Instructions: Low Back Pain ([facility]), Warm Packs ([facility]), Muscle Relaxers ([facility]) Additional Instructions: Take medication as prescribed. Apply heat to the sore area. Massage the sore area. Follow-up with your doctor or orthopedics at the next available appointment. Follow-up sooner for increasing pain, high fever, redness, difficulty controlling her bowels or bladder, or for any further concerns. The medication you were prescribed today may cause drowsiness. Do not drive or operate heavy machinery while taking this medication. Prescriptions: Diazepam [Valium 5 mg Tablet] 5 mg PO QIDP PRN #15 tablet PRN Reason: Naproxen [Naprosyn] 500 mg PO BID #20 tablet Forms: Smoking Cessation Education Referrals: LEIGHANN PHILLIPS MD [Primary Care Provider] - Follow up as needed ROSA ELENA DUBOIS MD [ACTIVE STAFF] - Follow up as needed [facility] [Provider Group] - Follow up as needed
[2017-08-26 19:33] VITALS: BP 122/77
== END 2017-08-26 19:31 | disposition home or self-care (01) ==
LOC: ER 16:38
DX: M62.830 Muscle spasm of back (principal); M54.5 Low back pain; M54.6 Pain in thoracic spine; W22.8XXA Striking against or struck by other objects, initial encounter; F17.200 Nicotine dependence, unspecified, uncomplicated; J45.909 Unspecified asthma, uncomplicated
CPT/HCPCS: 99283

== ENCOUNTER 2018-09-30 15:25 | Emergency (ER) | payer SELFPAY ==
[2018-09-30] MEDS ORDERED: METOCLOPRAMIDE HCL INJ/PF 10 MG/2 ML SDV IM ONE (16:09)
[2018-09-30] MEDS ORDERED: MECLIZINE HCL 25 MG TABLET PO ONE (16:09)
[2018-09-30] MEDS ORDERED: KETOROLAC TROMETHAMINE INJ/PF 30 MG/1 ML SDV IM ONE (16:09)
[2018-09-30] MEDS ORDERED: DIPHENHYDRAMINE HCL 50 MG/ML VIAL IM ONE (16:09)
--- NOTE | 2018-09-30 16:16 | ER Document Report ---
ED Headache - General Chief Complaint: Headache Stated Complaint: DIZZINESS,HEADACHE Time Seen by Provider: 09/30/18 15:59 Primary Care Provider: NOHEMY LLOYD MD [EMERITUS] - Follow up as needed NYA MITCHELL DO [Primary Care Provider] - Follow up as needed Mode of Arrival: Ambulatory Information source: Patient TRAVEL OUTSIDE OF THE [place] IN LAST 30 DAYS: No - HPI Patient complains to provider of: Headache, Other - DIZZINESS Notes: Patient is here with complaints of headache and dizziness. States is been gone for the last few weeks. States that the dizziness is a spinning sensation, typically after she turns her head or moves. Does seem to improve after times. She also states that for the last few weeks has been having some headaches. She states she typically gets a fogginess or sees stars in her left eye and then developed a headache afterwards. No numbness, tingling, weakness. No head injury. No fevers. No blood thinners. No nausea, vomiting, diarrhea. No chest pain or shortness of breath. No neck stiffness. No rash. No blurred or loss of vision. Symptoms are intermittent. - Related Data Allergies/Adverse Reactions: fluoxetine Adverse Reaction (Intermediate, Verified 08/26/17 16:40) Delirium gain laundry detergent Allergy (Uncoded 07/08/17 08:54) Past Medical History - Social History Smoking Status: Current Every Day Smoker Family History: None Patient has suicidal ideation: No Patient has homicidal ideation: No Pulmonary Medical History: Reports: Hx Asthma - as a child Renal/ Medical History: Denies: Hx Peritoneal Dialysis Psychiatric Medical History: Reports: Hx Bipolar Disorder, Hx Depression - anxiety - Immunizations Immunizations up to date: Yes Hx Diphtheria, Pertussis, Tetanus Vaccination: No Review of Systems - Review of Systems -: Yes All other systems reviewed and negative Physical Exam - Vital signs Vitals: Temp Pulse Resp BP Pulse Ox 98.5 F 82 18 133/51 H 97 09/30/18 15:33 09/30/18 15:33 09/30/18 15:33 09/30/18 15:33 09/30/18 15:33 - Notes Notes: GENERAL: alert, cooperative, nontoxic, no distress. HEAD: normocephalic, atraumatic EYES: conjunctiva pink without discharge, no external redness or swelling. Pupils are equal, round, reactive to light. EARS: no external swelling, no external redness NOSE: atraumatic, no external swelling MOUTH/THROAT: mucous membranes moist and pink, posterior pharynx without erythema, swelling, exudate. No trismus or drooling. NECK: soft, supple, full range of motion, no meningismus. CHEST: no distress, lungs clear and equal throughout. No wheezing, rales, rhonchi. CARDIAC: regular rate and rhythm, no murmur, normal capillary refill, normal pulses. No peripheral edema noted. BACK: full range of motion, no CVA tenderness. EXTREMITIES: full range of motion of all extremities. No redness, no swelling. NEURO: alert and oriented x 3, cranial nerves II through XII are grossly intact. Upper and lower extremities are equal throughout. Normal sensation. No focal deficits, full range of motion of all extremities. normal finger to nose. PYSCH: appropriate mood, affect. Patient is cooperative. SKIN: pink, warm, dry, no rash. Course - Re-evaluation Re-evalutation: 09/30/18 19:32 Patient nontoxic-appearing with stable vitals. Patient here with complaints of headaches and dizziness. The dizziness is described as feeling like she got off of a carousel. This happens after certain head movements and when she gets up. Its brief. She has a nonfocal neurological exam and symptoms are consistent with benign positional vertigo. She also complains of intermittent headaches. She states that she gets some floaters in her eye or sees stars and then develops what sounds like a migraine type headache. This been happening for the last several weeks. No head injury, no blood thinners, no fever. She again has a nonfocal neurological exam. Head CT is negative for any acute findings. She has no neck stiffness, fever or signs of meningitis. Patient was given medication here with significant improvement of her headache. Her dizziness has improved as well. Does not like the patient may be experiencing some migraines with aura as well as likely benign positional vertigo. This point I believe the patient can be discharged home with instructions to follow-up with neurology and her primary care doctor at the next available appointment. She will be given a prescription for Antivert to take as needed for her dizziness. Follow-up sooner for worsening pain, high fever, neck stiffness, blurred vision, numbness, tingling, weakness, any further concerns. The patient's emergency department workup and current diagnosis were explained to the patient and or family. Follow-up instructions were provided. Medications if prescribed were discussed. Instructions for when to return to the emergency department including specific worrisome symptoms were discussed with the patient and/or family. - Vital Signs Vital signs: Temp Pulse Resp BP Pulse Ox 98.3 F 71 16 112/58 L 99 09/30/18 19:30 09/30/18 19:30 09/30/18 19:30 09/30/18 19:30 09/30/18 19:30 - Diagnostic Test Radiology reviewed: Image reviewed, Reports reviewed - Negative head CT Discharge - Discharge Clinical Impression: Vertigo Headache Qualifiers: Headache type: unspecified Headache chronicity pattern: acute headache Intractability: not intractable Qualified Code(s): R51 - Headache Condition: Stable Disposition: HOME, SELF-CARE Instructions: Headache ([facility]), Vertigo ([facility]) Additional Instructions: Take medication as prescribed. Follow-up with neurology at the next available appointment. Follow-up sooner for any worsening symptoms, high fever, persistent vomiting, numbness, tingling, weakness, chest pain, shortness of breath, passing out, or for any further concerns. Prescriptions: Meclizine HCl [Antivert 25 mg Tablet] 25 mg PO TID PRN #21 tablet PRN Reason: Forms: Elevated Blood Pressure, Smoking Cessation Education, Return to Work Referrals: NYA MITCHELL DO [Primary Care Provider] - Follow up as needed NOHEMY LLOYD MD [EMERITUS] - Follow up as needed
--- NOTE | 2018-09-30 18:35 | RADIOLOGY REPORT (SQ) ---
EXAM DESCRIPTION: CT HEAD WITHOUT COMPLETED DATE/TIME: 09/30/2018 6:07 pm REASON FOR STUDY: HEADACHE, DIZZINESS COMPARISON: None. TECHNIQUE: Axial images acquired through the brain without intravenous contrast. Images reviewed wi th bone, brain and subdural windows. Additional sagittal and coronal reconstructions were generated. Images stored on PACS. All CT scanners at this facility use dose modulation, iterative reconstruction, and/or weight based d osing when appropriate to reduce radiation dose to as low as reasonably achievable (ALARA). [facility]: Dose Right [facility]: CareDose [facility]: Dose Right [facility]: Teradose 4D [facility]: Smart Whiphand RADIATION DOSE: CT Rad equipment meets quality standard of care and radiation dose reduction techniq ues were employed. CTDIvol: 53.2 mGy. DLP: 1044 mGy-cm. mGy. LIMITATIONS: None. FINDINGS: VENTRICLES: Normal size and contour. CEREBRUM: No masses. No hemorrhage. No midline shift. No evidence for acute infarction. Normal gra y/white matter differentiation. No areas of low density in the white matter. CEREBELLUM: No masses. No hemorrhage. No alteration of density. No evidence for acute infarction. EXTRAAXIAL SPACES: No fluid collections. No masses. ORBITS AND GLOBE: No intra- or extraconal masses. Normal contour of globe without masses. CALVARIUM: No fracture. PARANASAL SINUSES: No fluid or mucosal thickening. SOFT TISSUES: No mass or hematoma. OTHER: No other significant finding. IMPRESSION: NORMAL BRAIN CT WITHOUT CONTRAST. EVIDENCE OF ACUTE STROKE: NO. COMMENT: Quality ID # [id number]: Final reports with documentation of one or more dose reduction techniques (e.g., Automated exposure control, adjustment of the mA and/or kV according to patient size, use of iterative reconstruction technique) TECHNICAL DOCUMENTATION: JOB ID: [id number] [employer] / [employer]- All Rights Reserved Reading location - IP/workstation name: [email or web address]
[2018-09-30 19:31] VITALS: BP 112/58
== END 2018-09-30 19:34 | disposition home or self-care (01) ==
LOC: ER 15:25
DX: R42 Dizziness and giddiness (principal); R51 Headache; F17.200 Nicotine dependence, unspecified, uncomplicated; J45.909 Unspecified asthma, uncomplicated
CPT/HCPCS: 99284; 96372; 70450; J1200; J1885; J2765

== ENCOUNTER 2018-11-12 15:59 | Emergency (ER) | payer SELFPAY ==
[2018-11-12 16:15] VITALS: BP 128/62
[2018-11-12] MEDS ORDERED: CEFTRIAXONE INJ 250 MG VIAL IM ONE (16:21)
[2018-11-12] MEDS ORDERED: AZITHROMYCIN 250 MG TABLET PO ONE (16:21)
--- NOTE | 2018-11-12 16:42 | ER Document Report ---
HPI - HPI Time Seen by Provider: 11/12/18 16:37 Pain Level: 4 Notes: Patient is a 23-year-old female no significant past medical history who presents for possible exposure to gonorrhea and her boyfriend. Last menstrual period was less than a month ago. She is eating and drinking without difficulty. She is urinating normally and having normal bowel movements. She has not had any vaginal discharge, odor, or bleeding. No other concerns or complaints. Denies any headache, fever, URI, sore throat, chest pain, palpitations, syncope, cough, shortness of breath, wheeze, dyspnea, abdominal pain, nausea/vomiting/diarrhea, urinary retention, dysuria, hematuria, or rash. - ROS Systems Reviewed and Negative: Yes All other systems reviewed and negative - REPRODUCTIVE Reproductive: DENIES: : Past Medical History - Social History Smoking Status: Current Every Day Smoker Family History: None Pulmonary Medical History: Reports: Hx Asthma - as a child Renal/ Medical History: Denies: Hx Peritoneal Dialysis Psychiatric Medical History: Reports: Hx Bipolar Disorder, Hx Depression - anxiety - Immunizations Immunizations up to date: Yes Hx Diphtheria, Pertussis, Tetanus Vaccination: No Vertical Provider Document - CONSTITUTIONAL Agree With Documented VS: Yes Notes: PHYSICAL EXAMINATION: GENERAL: Well-appearing, well-nourished and in no acute distress. LUNGS: Breath sounds clear to auscultation bilaterally and equal. No wheezes rales or rhonchi. HEART: Regular rate and rhythm without murmurs, rubs, gallops. ABDOMEN: Soft, nontender, nondistended abdomen. No guarding, no rebound. No masses appreciated. Normal bowel sounds present. No CVA tenderness bilaterally. : deferred. Pt wanted to self-swab Extremities: No cyanosis, clubbing, or edema b/l. Peripheral pulses 2+. Capillary refill less than 3 seconds. NEUROLOGICAL: Normal speech, normal gait. PSYCH: Normal mood, normal affect. SKIN: Warm, Dry, normal turgor, no rashes or lesions noted. - INFECTION CONTROL TRAVEL OUTSIDE OF THE [place] IN LAST 30 DAYS: No Course - Re-evaluation Re-evalutation: 11/12/18 Patient is an afebrile, well-hydrated, 23-year-old female who presents to the ED for possible exposure to STD. Vitals are acceptable without any significant tachycardia, tachypnea, or hypoxia. PE is otherwise unremarkable. Abdomen is soft and nontender. Patient is currently asymptomatic. See wet mount results. Chlam/gonorrhea tests are pending. Patient received Rocephin and Zithromax today. Patient is nontoxic-appearing is tolerating p.o. without any difficulties. No other labs or imaging warranted at this time based on H&P. Low suspicion/risk for acute appendicitis, bowel obstruction, acute cholecystitis, acute cholangitis, perforated diverticulitis, incarcerated hernia, pancreatitis, perforated ulcer, peritonitis, sepsis, pelvic inflammatory disease, tubo-ovarian abscess, ovarian torsion, or other systemic emergent condition at this time. Patient is aware that her condition can change from initial presentation and she needs to monitor symptoms closely and seek medical attention if any acute changes. Conservative measures otherwise for symptoms. Recheck with your PCM/health department in 3-5 days. Return to the ED with any worsening/concerning symptoms otherwise as reviewed in discharge. Patient is in agreement. - Vital Signs Vital signs: Temp Pulse Resp BP Pulse Ox 98.7 F 71 13 128/62 H 96 11/12/18 16:13 11/12/18 16:13 11/12/18 16:13 11/12/18 16:13 11/12/18 16:13 Discharge - Discharge Clinical Impression: Exposure to STD Condition: Stable Disposition: HOME, SELF-CARE Additional Instructions: Maintain fluid intake Proper hygienic technique Keep the skin clean Safe sexual practices with condoms everytime Tylenol/ibuprofen as needed Check in with the health department this week for further testing if warranted Your chlamydia/gonorrhea tests are pending and you will be notified if positive results; you may call in 1 day for the results as well F/u with your PCM/OBGYN in 3-5 days for a recheck Return to the ED with any development of PABLO/fever, trouble with vision, eye redness, worsening pain, urethral discharge, urinary retention, blood in the urine, flank pain, abdominal pain, n/v, Chest Pain, shortness of breath, joint pains, trouble breathing, or any other worsening/concerning symptoms as needed otherwise. Forms: Elevated Blood Pressure, Smoking Cessation Education Referrals: NYA MITCHELL DO [Primary Care Provider] - Follow up as needed [facility] [NO LOCAL MD] - Follow up in 3-5 days
[2018-11-12 17:12] LABS: BACTERIA (WET MOUNT) 3+ BACTERIA SEEN; EPITHELIALS (WET MOUNT) 3+ EPITHELIALS SEEN; RBCS (WET MOUNT) NO RBCS SEEN; T.VAGINALIS (WET MOUNT) NO TRICHOMONAS SEEN; WBCS (WET MOUNT) NO WBCS SEEN; YEAST (WET MOUNT) NO YEAST SEEN
[2018-11-12 18:47] LABS: CHLAM PCR NOT DETECTED (NOT DETECT); GON PCR DETECTED (NOT DETECT)
== END 2018-11-12 17:26 | disposition home or self-care (01) ==
LOC: ER 15:59
DX: Z20.2 Contact with and (suspected) exposure to infections with a predominantly sexual mode of transmission (principal); F17.200 Nicotine dependence, unspecified, uncomplicated
CPT/HCPCS: 99283; 96372; 87210; 87491; 87591; J0696

== ENCOUNTER 2019-03-06 02:51 | Emergency (ER) | payer SELFPAY ==
[2019-03-06] MEDS ORDERED: DICYCLOMINE HCL 10 MG CAPSULE PO ONE (03:26)
--- NOTE | 2019-03-06 03:31 | ER Document Report ---
ED General - General Chief Complaint: Abdominal Cramping Stated Complaint: ABDOMINAL CRAMPING Time Seen by Provider: 03/06/19 03:25 Primary Care Provider: NYA MITCHELL DO [NO LOCAL MD] - Follow up as needed TRAVEL OUTSIDE OF THE [place] IN LAST 30 DAYS: No - HPI Notes: 23-year-old female presents with abdominal cramping. Describes a week of intermittent lower suprapubic cramping, some mild frequency and urgency. Moderate intensity, nonradiating. No fever, chills or sweats. No vaginal bleeding or discharge. No other modifying factors, no other associated symptoms, no other provocative or palliative factors. - Related Data Allergies/Adverse Reactions: fluoxetine Adverse Reaction (Intermediate, Verified 11/12/18 16:01) Delirium gain laundry detergent Allergy (Uncoded 11/12/18 16:01) Past Medical History - Social History Smoking Status: Current Every Day Smoker Chew tobacco use (# tins/day): No Frequency of alcohol use: None Drug Abuse: None Family History: None Patient has suicidal ideation: No Patient has homicidal ideation: No Pulmonary Medical History: Reports: Hx Asthma - as a child Renal/ Medical History: Denies: Hx Peritoneal Dialysis Psychiatric Medical History: Reports: Hx Bipolar Disorder, Hx Depression - anx iety - Immunizations Immunizations up to date: Yes Hx Diphtheria, Pertussis, Tetanus Vaccination: No Review of Systems - Review of Systems Notes: Review of systems as in the history of present illness, otherwise negative x 10 systems. Physical Exam - Vital signs Vitals: Temp Pulse Resp BP Pulse Ox 98.7 F 95 18 139/83 H 97 03/06/19 02:59 03/06/19 02:59 03/06/19 02:59 03/06/19 02:59 03/06/19 02:59 - Notes Notes: General: Well developed . HEENT: Normocephalic, atraumatic. Pupils equal round reactive to light. No JVD. Chest: No trauma. Respiratory: Good air exchange, normal excursion. Cardiac: Regular rhythm. No murmurs or gallops. Abdomen: Soft, benign. Minimal suprapubic tenderness, otherwise unremarkable. Back: No asymmetry or gross abnormality. Motor: Grossly normal power and tone. Neurologic: Alert, nonfocal. Cranial nerves II-12 are intact. Sensation intact. Vascular: Well perfused. Normal peripheral pulses. Skin: No petechiae or purpura. Course - Re-evaluation Re-evalutation: 03/06/19 03:31 Well-appearing female with a relatively benign exam, consider cystitis, less likely Buddy, consider related emergency if UPT is positive. Doubt appendicitis, doubt PID. Plan proceed with basic UA, UPT, Bentyl, reassess. 03/06/19 04:29 Urinalysis and urine test are unremarkable, discharged home with a prescription for diclofenac, outpatient follow-up. - Vital Signs Vital signs: Temp Pulse Resp BP Pulse Ox 98.7 F 95 18 139/83 H 97 03/06/19 02:59 03/06/19 02:59 03/06/19 02:59 03/06/19 02:59 03/06/19 02:59 - Laboratory Laboratory results interpreted by me: 03/06/19 03:50 Urine Urobilinogen 4.0 H Discharge - Discharge Clinical Impression: Abdominal pain Qualifiers: Abdominal location: unspecified location Qualified Code(s): R10.9 - Unspecified abdominal pain Condition: Stable Disposition: HOME, SELF-CARE Instructions: Abdominal Pain ([facility]) Prescriptions: Diclofenac Sodium 75 mg PO Q12 7 Days #14 tablet. Referrals: NYA MITCHELL DO [NO LOCAL MD] - Follow up tomorrow
[2019-03-06 04:13] LABS: APPEARANCE,URINE CLEAR; BILIRUBIN,URINE NEGATIVE (NEGATIVE); COLOR,URINE YELLOW; GLUCOSE, URINE NEGATIVE (NEGATIVE); KETONES,URINE NEGATIVE (NEGATIVE); LEUKOCYTE ESTERASE,URINE NEGATIVE (NEGATIVE); NITRITE,URINE NEGATIVE (NEGATIVE); PROTEIN,URINE NEGATIVE (NEGATIVE); URINE SPECIFIC GRAVITY 1.021
[2019-03-06 05:13] VITALS: BP 120/68
== END 2019-03-06 05:11 | disposition home or self-care (01) ==
LOC: ER 02:51
DX: R10.84 Generalized abdominal pain (principal); F17.200 Nicotine dependence, unspecified, uncomplicated
CPT/HCPCS: 99284; 81025; 81001; J3490

== ENCOUNTER 2019-03-12 23:04 | Emergency (ER) | payer SELFPAY ==
[2019-03-12 23:11] VITALS: BP 115/65
[2019-03-12] MEDS ORDERED: PENICILLIN V POTASSIUM 500 MG TABLET PO ONE (23:27)
[2019-03-12] MEDS ORDERED: HYDROCODONE/ACETAMINOPHEN 5-325 MG (6 TAB/ER DISP) PO PRN (23:28)
--- NOTE | 2019-03-12 23:32 | ER Document Report ---
HPI - HPI Time Seen by Provider: 03/12/19 23:22 Notes: Patient is an otherwise healthy 23-year-old female presenting to the emergency department with dental pain. Patient reports pain at tooth #31 as well as tooth #15. Tooth #31 is fractured, she states she has been trying to pick all the re st of the fractured pieces out of her mouth. She states she is now having severe throbbing. She also reports dental pain at tooth #15 due to a bad tooth. She denies any fevers or drainage from the area. States she has not seen a dentist. - REPRODUCTIVE Reproductive: DENIES: : Past Medical History - General Information source: Patient - Social History Smoking Status: Never Smoker Frequency of alcohol use: None Drug Abuse: None Family History: None Pulmonary Medical History: Reports: Hx Asthma - as a child Renal/ Medical History: Denies: Hx Peritoneal Dialysis Psychiatric Medical History: Reports: Hx Bipolar Disorder, Hx Depression - anxiety - Immunizations Immunizations up to date: Yes Hx Diphtheria, Pertussis, Tetanus Vaccination: No Vertical Provider Document - CONSTITUTIONAL Notes: PHYSICAL EXAMINATION: GENERAL: Well-appearing, well-nourished and in no acute distress. HEAD: Atraumatic, normocephalic. EYES: Pupils equal round extraocular movements intact, conjunctiva are normal. ENT: Nares patent, fractured tooth noted at tooth #31, hole noted in tooth #15, no drainable abscess identified, no erythema on the gumline. NECK: Normal range of motion LUNGS: No respiratory distress Musculoskeletal: Normal range of motion NEUROLOGICAL: Normal speech, normal gait. PSYCH: Normal mood, normal affect. SKIN: Warm, Dry, normal turgor, no rashes or lesions noted. - INFECTION CONTROL TRAVEL OUTSIDE OF THE [place] IN LAST 30 DAYS: No Course - Re-evaluation Re-evalutation: We will treat patient with appropriate medications, will start on penicillin. [facility] her [facility] of the fractured tooth. Patient verbalizes understanding and agreement with this plan, ED return precautions were discussed, patient verbalizes understanding and agreement with same. - Vital Signs Vital signs: Temp Pulse Resp BP Pulse Ox 98.5 F 84 20 115/65 98 03/12/19 23:09 03/12/19 23:09 03/12/19 23:09 03/12/19 23:09 03/12/19 23:09 Discharge - Discharge Clinical Impression: Pain, dental Condition: Stable Disposition: HOME, SELF-CARE Additional Instructions: You have been seen for dental pain. It is very important that you follow-up with a dentist for definitive care. Please return if you develop fever greater than 101, swelling in your face, vomiting, difficulty breathing or swallowing, or any other symptoms that are concerning to you. For pain you should take ibuprofen 800 mg every 8 hours as needed take medications as prescribed. Call the [facility] tomorrow to schedule an appointment. Their number is [phone]. Prescriptions: Penicillin V Potassium [Penicillin Vk 500 mg Tablet] 500 mg PO BID #20 tablet Forms: Return to Work Referrals: NICK ARNDT PA [Primary Care Provider] - Follow up as needed
== END 2019-03-12 23:46 | disposition home or self-care (01) ==
LOC: ER 23:04
DX: K08.9 Disorder of teeth and supporting structures, unspecified (principal)

== ENCOUNTER 2019-04-02 00:43 | Emergency (ER) | payer SELFPAY ==
[2019-04-02 01:17] VITALS: BP 132/80
[2019-04-02] MEDS ORDERED: HYDROCODONE/ACETAMINOPHEN 5-325 MG TABLET PO ONE (01:21)
[2019-04-02] MEDS ORDERED: PENICILLIN V POTASSIUM 500 MG TABLET PO ONE (01:21)
--- NOTE | 2019-04-02 01:26 | ER Document Report ---
ED Oral Problem - General Chief Complaint: Toothache Stated Complaint: MOUTH PAIN/TOOTH PAIN Time Seen by Provider: 04/02/19 01:14 Primary Care Provider: NICK ARNDT PA [Primary Care Provider] - Follow up as needed Mode of Arrival: Ambulatory Information source: Patient Notes: 24-year-old female presented to ED for complaint of dental pain to tooth #13 and 17 since July. She states is been worse for the last week. She states she is been using Tylenol and Motrin. Last ibuprofen was at 6 PM tonight. 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 Patient is alert oriented respirations regular and unlabored. She states she does not have any insurance is not is why she has not been to a dentist. TRAVEL OUTSIDE OF THE [place] IN LAST 30 DAYS: No - HPI Patient complains to provider of: Toothache Onset: Other - Since July Quality of pain: Sharp, Throbbing Associated symptoms: Toothache Worsened by: Heat Relieved by: Nothing Similar symptoms previously: Yes Recently seen / treated by doctor/dentist: No - Related Data Allergies/Adverse Reactions: fluoxetine Adverse Reaction (Intermediate, Verified 11/12/18 16:01) Delirium gain laundry detergent Allergy (Uncoded 11/12/18 16:01) Past Medical History - General Information source: Patient - Social History Smoking Status: Current Every Day Smoker Cigarette use (# per day): Yes - Half pack per day Smoking Education Provided: Yes - 4 minutes Frequency of alcohol use: Occasional Drug Abuse: None 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 Lives with: Family Family History: None Patient has suicidal ideation: No Patient has homicidal ideation: No - Past Medical History Cardiac Medical History: Reports: None - As you know so you know she was waiting for you Pulmonary Medical History: Reports: Hx Asthma - as a child EENT Medical History: Reports: None Neurological Medical History: Reports: None Endocrine Medical History: Reports: None Renal/ Medical History: Reports: None Malignancy Medical History: Reports: None GI Medical History: Reports: None Musculoskeletal Medical History: Reports None Skin Medical History: Reports None Psychiatric Medical History: Reports: Hx Bipolar Disorder, Hx Depression - anxiety Traumatic Medical History: Reports: None Infectious Medical History: Reports: None Surgical Hx: Negative Past Surgical History: Reports: None - Immunizations Immunizations up to date: Yes Hx Diphtheria, Pertussis, Tetanus Vaccination: No Review of Systems - Review of Systems Constitutional: No symptoms reported EENT: Mouth pain, Dental problem Cardiovascular: No symptoms reported Respiratory: No symptoms reported Gastrointestinal: No symptoms reported Genitourinary: No symptoms reported Female Genitourinary: No symptoms reported Musculoskeletal: No symptoms reported Skin: No symptoms reported Hematologic/Lymphatic: No symptoms reported Neurological/Psychological: No symptoms reported -: Yes All other systems reviewed and negative Physical Exam - Vital signs Vitals: Pulse Resp BP Pulse Ox 72 20 132/80 H 100 04/02/19 01:15 04/02/19 01:15 04/02/19 01:15 04/02/19 01:15 Interpretation: Normal - General General appearance: Appears well, Alert - HEENT Head: Normocephalic, Atraumatic Eyes: Normal Pupils: PERRL Ears: Normal External canal: Normal Tympanic membrane: Normal Sinus: Normal Nasal: Normal Mouth/Lips: Caries Mucous membranes: Normal Teeth diagram: 1 - Cracked tooth with cavity 2 - Impacted wisdom tooth Pharynx: Normal Neck: Normal - Respiratory Respiratory status: No respiratory distress Chest status: Nontender Breath sounds: Normal Chest palpation: Normal - Cardiovascular Rhythm: Regular Heart sounds: Normal auscultation Murmur: No - Abdominal Inspection: Normal Distension: No distension Bowel sounds: Normal Tenderness: Nontender Organomegaly: No organomegaly - Back Back: Normal, Nontender - Extremities General upper extremity: Normal inspection, Nontender, Normal color, Normal ROM, Normal temperature General lower extremity: Normal inspection, Nontender, Normal color, Normal ROM, Normal temperature, Normal weight bearing. No: Jackie's sign - Neurological Neuro grossly intact: Yes Cognition: Normal Orientation: AAOx4 [place] Coma Scale Eye Opening: Spontaneous Justine Coma Scale Verbal: Oriented Justine Coma Scale Motor: Obeys Commands Justine Coma Scale Total: 15 Speech: Normal Motor strength normal: LUE, RUE, LLE, RLE Sensory: Normal - Psychological Associated symptoms: Normal affect, Normal mood - Skin Skin Temperature: Warm Skin Moisture: Dry Skin Color: Normal Course - Re-evaluation Re-evalutation: 04/02/19 01:33 Presentation is most consistent with likely an infected tooth. Airway is patent. Vitals within normal limits. Patient is able swallow without any difficulty. There is no significant facial swelling. No evidence of Cliff angina, apical abscess, or airway obstruction. Patient will be started on antibiotics. I've instructed to follow-up with dentistry as earliest ability for definitive management. At this time will discharge with return precautions and follow-up recommendations. Verbal discharge instructions given a the bedside and opportunity for questions given. Medication warnings reviewed. Patient is in agreement with this plan and has verbalized understanding of return precautions and the need for primary care follow-up in the next 24-72 hours. - Vital Signs Vital signs: Temp Pulse Resp BP Pulse Ox 72 20 132/80 H 100 04/02/19 01:15 04/02/19 01:15 04/02/19 01:15 04/02/19 01:15 Discharge - Discharge Clinical Impression: Pain due to dental caries Condition: Stable Disposition: HOME, SELF-CARE Additional Instructions: TOOTHACHE: Your pain is due to dental decay. The tooth must be repaired in order for you to feel better. You will, therefore, be referred to a dentist. We do not have dentists on the staff at [facility]. Severe swelling or drainage around a tooth usually means a dental abscess. This also requires evaluation and treatment by the dentist, but antibiotics may be prescribed while awaiting dental treatment. You should be rechecked immediately if you develop major swelling of the face, increasing pain, a lump in the jaw or gums, headache, difficulty swal lowing, or fever. ORAL NARCOTIC MEDICATION: You have been given a [place] for pain control. This medication is a narcotic. It's best taken with food, as nausea can result if taken on an empty stomach. Don't operate machinery or drive within six hours of taking this medication. Do not combine this medicine with alcohol, or with any medication which can cause sedation (such as cold tablets or sleeping pills) unless you get permission from the physician. Narcotics tend to cause constipation. If possible, drink plenty of fluids and eat a diet high in fiber and fruits. Please be aware that prescription narcotics also have the potential for abuse. People become addicted to these medications because of the general sense of wellbeing that they induce. This feeling along with a significant reduction in tension, anxiety, and aggression provides a stimulating seductive quality to these drugs. Once your pain is under control, we encourage you to discard your unused narcotics. PENICILLIN V K: You have been given a prescription for Penicillin VK. Your physician has determined that this is the best antibiotic for your condition. Pen VK can be taken with meals, however more of the antibiotic gets into the bloodstream if it's taken on an empty stomach. Penicillin usually has no side effects. However, allergy to penicillins is common. If you have had an allergic reaction to any drug of the penicillin family, you should never take any other penicillin. Notify your doctor at once if you develop hives, itching, swelling, faintness, or shortness of breath. FOLLOW-UP CARE: You have been referred for follow-up care to the dentists listed below. Call the dentists office for an appointment as you were instructed or within the next two days. If you experience worsening or a significant change in your symptoms, notify the physician immediately or return to the Emergency Department at any time for re-evaluation. [facility] [address] [place] [address] [facility] [place] [address] [facility] [address] [facility] ([facility] [address] [facility] [email or web address] [facility] [address] [place] [address] Saturday- 8:00am to 5:00 pm Will see patients from other [facility]. Charges based on income and family size and accepts Medicare, Medicaid, and Insurances Will pull molars [facility] [address] Hours of Operation 8:00 am - 4:30 pm weekdays The following dental offices accept Medicaid: [facility] Dr. Dotson Dr. Daniels Dr. Oliveros Dr. Barnes T[place]ne Carlson Lutsavage, and [facility] oral surgery Dr. Jimenez ([place]) Dr. Reynaga ([place]) [facility] Drs. Gates and Rehan ([place]) Dr. Escobar ([place]) [facility] Dr. Zeigler ([place]) Drs. Hanson and ([place]) Medicaid Care Line Prescriptions: Penicillin V Potassium [Penicillin Vk 500 mg Tablet] 500 mg PO BID #20 tablet Forms: Elevated Blood Pressure, Return to Work Referrals: NICK ARNDT PA [Primary Care Provider] - Follow up as needed [facility] [Provider Group] - Follow up as needed
== END 2019-04-02 01:39 | disposition home or self-care (01) ==
LOC: ER 00:43
DX: K02.9 Dental caries, unspecified (principal); K03.81 Cracked tooth; K01.1 Impacted teeth; K08.89 Other specified disorders of teeth and supporting structures; F17.210 Nicotine dependence, cigarettes, uncomplicated; Z71.6 Tobacco abuse counseling; Z91.048 Other nonmedicinal substance allergy status
CPT/HCPCS: 99282; 99406

== ENCOUNTER 2019-09-08 17:45 | Emergency (ER) | payer OTHER ==
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
[2019-09-08 18:04] VITALS: BP 121/66
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
== END 2019-09-08 19:21 | disposition home or self-care (01) ==
LOC: ER 17:45
DX: S33.5XXA Sprain of ligaments of lumbar spine, initial encounter (principal); S73.102A Unspecified sprain of left hip, initial encounter; S43.402A Unspecified sprain of left shoulder joint, initial encounter; S50.02XA Contusion of left elbow, initial encounter; M79.602 Pain in left arm; V49.40XA Driver injured in collision with unspecified motor vehicles in traffic accident, initial encounter; Z91.048 Other nonmedicinal substance allergy status
CPT/HCPCS: 72110; 99283

== ENCOUNTER 2020-07-05 15:57 | Emergency (ER) | payer SELFPAY ==
--- NOTE | 2020-07-05 16:35 | ER Document Report ---
ED Medical Screen (RME) - General Chief Complaint: Sore Throat Stated Complaint: VAGINAL IRRITATION Time Seen by Provider: 07/05/20 16:25 TRAVEL OUTSIDE OF THE [place] IN LAST 30 DAYS: No - HPI Notes: 07/05/20 16:32 25-year-old female presents to the emergency room today for evaluation after she had unprotected sexual intercourse with her partner last night. Reports she did give fellatio now she has a sore throat, endorses having itchiness in her vagina and having a foul smell come from her vagina. She does have a history of chlamydia in the past. She states that her partner will not get tested for STDs. Denies any fevers chills, chest pain, shortness of breath nausea vomiting or diarrhea. She is unsure if her partner has chlamydia or gonorrhea. Denies having a history of genital herpes. Denies any ulcerations to labia or vagina that she can tell. I have greeted and performed a rapid initial assessment of this patient. A comprehensive ED assessment and evaluation of the patient, analysis of test results and completion of the medical decision making process will be conducted by additional ED providers. PHYSICAL EXAMINATION: GENERAL: Well-appearing, well-nourished and in no acute distress. HEAD: Atraumatic, normocephalic. EYES: Pupils equal round extraocular movements intact, conjunctiva are normal. ENT: Erythema to posterior pharynx CV: s1, s2 regular LUNGS: No respiratory distress Unable to obtain a full exam intact. Patient does need a room where she can have a pelvic examination by main side provider The patient was evaluated during a global COVID-19 pandemic and that diagnosis was suspected/considered upon their initial presentation. Their evaluation, treatment and testing was consistent with current guidelines for patients who present with complaints or symptoms and may be related to COVID-19. - Related Data Allergies/Adverse Reactions: fluoxetine Adverse Reaction (Intermediate, Verified 07/05/20 16:25) Delirium gain laundry detergent Allergy (Uncoded 07/05/20 16:25) Past Medical History - Social History Chew tobacco use (# tins/day): No Frequency of alcohol use: None Drug Abuse: None Pulmonary Medical History: Reports: Hx Asthma - as a child Renal/ Medical History: Denies: Hx Peritoneal Dialysis Psychiatric Medical History: Reports: Hx Bipolar Disorder, Hx Depression - anxiety - Immunizations Immunizations up to date: Yes Hx Diphtheria, Pertussis, Tetanus Vaccination: No Physical Exam - Vital signs Vitals: Temp Pulse Resp BP Pulse Ox 98.6 F 62 15 120/70 98 07/05/20 16:07 07/05/20 16:07 07/05/20 16:07 07/05/20 16:07 07/05/20 16:07 Course - Vital Signs Vital signs: Temp Pulse Resp BP Pulse Ox 98.6 F 62 15 120/70 98 07/05/20 16:07 07/05/20 16:07 07/05/20 16:07 07/05/20 16:07 07/05/20 16:07
[2020-07-05 17:02] LABS: AMORPHOUS SEDIMENT,URINE TRACE /HPF; APPEARANCE,URINE CLOUDY; BILIRUBIN,URINE NEGATIVE (NEGATIVE); COLOR,URINE YELLOW; GLUCOSE, URINE NEGATIVE (NEGATIVE); KETONES,URINE NEGATIVE (NEGATIVE); LEUKOCYTE ESTERASE,URINE SMALL (NEGATIVE); NITRITE,URINE NEGATIVE (NEGATIVE); PROTEIN,URINE 30 mg/dL (NEGATIVE); URINE SPECIFIC GRAVITY 1.023
--- NOTE | 2020-07-05 20:02 | ER Document Report ---
ED GI/ - General Chief Complaint: Sore Throat Stated Complaint: VAGINAL IRRITATION Time Seen by Provider: 07/05/20 16:25 Mode of Arrival: Ambulatory Information source: Patient Notes: 07/05/20 16:26 - ED Nursing Note by PROSPER MCCAIN Num: [id number] : 1995 Patient Age: 25 patient states she is concerned for an STD. patient states her boyfriend returned from out of town a couple of days ago, states she had oral sex, states her throat started to hurt and states she is now having vaginal itching, discharge, and odor. patient states the odor is not fishy smelling, states there is just an odor. patient states her discharge is white in color. patent breaths e/u, nad ED Medical Screen ([facility]led[facility]) - General Chief Complaint: Sore Throat Stated Complaint: VAGINAL IRRITATION - HPI Notes: 07/05/20 16:32 25-year-old female presents to the emergency room today for evaluation after she had unprotected sexual intercourse with her partner last night. Reports she did give fellatio now she has a sore throat, endorses having itchiness in her vagina and having a foul smell come from her vagina. She does have a history of chlamydia in the past. She states that her partner will not get tested for STDs. Denies any fevers chills, chest pain, shortness of breath nausea vomiting or diarrhea. She is unsure if her partner has chlamydia or gonorrhea. Denies having a history of genital herpes. Denies any ulcerations to labia or vagina that she can tell. I have greeted and performed a rapid initial assessment of this patient. A comprehensive ED assessment and evaluation of the patient, analysis of test re sults and completion of the medical decision making process will be conducted by additional ED providers. PHYSICAL EXAMINATION: GENERAL: Well-appearing, well-nourished and in no acute distress. HEAD: Atraumatic, normocephalic. EYES: Pupils equal round extraocular movements intact, conjunctiva are normal. ENT: Erythema to posterior pharynx CV: s1, s2 regular LUNGS: No respiratory distress Unable to obtain a full exam intact. Patient does need a room where she can have a pelvic examination by main side provider MY NOTES 25-year-old black female arrives by POV after she had oral and vaginal sex with her boyfriend the prior Saturday. She woke the next day with sore throat feeling like she had mouth breathe all night. She also reports she developed greenish- white vaginal discharge with a foul odor the prior day. She has a prior history of chlamydia. She reports her boyfriend went out of town and came back and had both use of condoms and no condom. Patient denies any prior history of HIV or syphilis. Patient denies any skin lesions or ulcerations. She did advise that she does not wear underwear in her house with her 4-year-old child and had a lot of itchiness around her pudendal areas beginning yesterday. Patient denies any . TRAVEL OUTSIDE OF THE [place] IN LAST 30 DAYS: No - HPI Patient complains to provider of: Abdominal pain, Vaginal discharge Onset: Yesterday Timing/Duration: Sudden, Persistent, Worse Quality of pain: Achy Severity at maximum: Mild Severity in ED: Mild Pain Level: 1 Location: Vaginal - Related Data Allergies/Adverse Reactions: fluoxetine Adverse Reaction (Intermediate, Verified 07/05/20 16:25) Delirium gain laundry detergent Allergy (Uncoded 07/05/20 16:25) Past Medical History - General Information source: Patient Last Menstrual Period: 06/18 - Social History Smoking Status: Current Every Day Smoker Cigarette use (# per day): Yes Chew tobacco use (# tins/day): No Smoking Education Provided: Yes Frequency of alcohol use: None Drug Abuse: None Lives with: Family Family History: None Patient has suicidal ideation: No Patient has homicidal ideation: No Pulmonary Medical History: Reports: Hx Asthma - as a child Renal/ Medical History: Denies: Hx Peritoneal Dialysis Psychiatric Medical History: Reports: Hx Bipolar Disorder, Hx Depression - anxiety - Immunizations Immunizations up to date: Yes Hx Diphtheria, Pertussis, Tetanus Vaccination: No Review of Systems - Review of Systems Constitutional: No symptoms reported EENT: No symptoms reported Cardiovascular: No symptoms reported Respiratory: No symptoms reported Gastrointestinal: No symptoms reported Genitourinary: See HPI, Burning, Discharge, Frequency Female Genitourinary: See HPI, Vaginal discharge, Vaginal odor Musculoskeletal: No symptoms reported Skin: No symptoms reported Hematologic/Lymphatic: No symptoms reported Neurological/Psychological: No symptoms reported -: Yes All other systems reviewed and negative Physical Exam - Vital signs Vitals: Temp Pulse Resp BP Pulse Ox 98.6 F 62 15 120/70 98 07/05/20 16:07 07/05/20 16:07 07/05/20 16:07 07/05/20 16:07 07/05/20 16:07 Interpretation: Normal - General General appearance: Alert, Anxious - HEENT Head: Normocephalic, Atraumatic Eyes: Normal Extraocular movements intact: Yes Pupils: PERRL External canal: Normal Sinus: Normal Mouth/Lips: Normal Mucous membranes: Dry Pharynx: Erythema, Exudate, Tonsillar hypertrophy, Uvular edema Neck: Normal - Respiratory Respiratory status: No respiratory distress Chest status: Nontender Breath sounds: Normal Chest palpation: Normal - Cardiovascular Rhythm: Regular Heart sounds: Normal auscultation Murmur: No - Abdominal Inspection: Normal Distension: No distension Bowel sounds: Normal Tenderness: Nontender Organomegaly: No organomegaly - Rectal Tenderness: No Hemorrhoids: None - Patient was examined with Alis POWELL - Genitourinary External exam: Lesions - Patient has diffuse vaginal edema and white-greenish vaginal discharge from enteritis. No speculum was needed as the discharge was pouring out quite profusely. No vaginal bleeding. External vulva was tender to palpation. Suprapubic area was tender to palpation. Rectal exam was not done. - Back Back: Normal, Nontender - Extremities General upper extremity: Normal inspection, Nontender, Normal color, Normal ROM, Normal temperature General lower extremity: Normal inspection, Nontender, Normal color, Normal ROM, Normal temperature, Normal weight bearing. No: Jackie's sign - Neurological Neuro grossly intact: Yes Cognition: Normal Orientation: AAOx4 Justine Coma Scale Eye Opening: Spontaneous Justine Coma Scale Verbal: Oriented Justine Coma Scale Motor: Obeys Commands Justine Coma Scale Total: 15 Speech: Normal Motor strength normal: LUE, RUE, LLE, RLE Sensory: Normal - Psychological Associated symptoms: Anxious - Skin Skin Temperature: Warm Skin Moisture: Dry Skin Color: Normal Course - Vital Signs Vital signs: Temp Pulse Resp BP Pulse Ox 98.1 F 59 L 20 117/100 H 100 07/05/20 21:21 07/05/20 21:21 07/05/20 21:21 07/05/20 21:21 07/05/20 21:21 - Laboratory Results Laboratory Results Interpreted: 07/05/20 16:31 Urine Protein 30 H Urine Urobilinogen 4.0 H Ur Leukocyte Esterase SMALL H Critical Laboratory Results Reviewed: Yes Attending or Supervising Physician who Reviewed Labs: AIME LYNCH JR - Radiology Results Critical Radiology Results Reviewed: No Critical Results Attending or Supervising Physician who Reviewed Radiology: AIME LYNCH JR Discharge - Discharge Clinical Impression: Vaginal discharge, STD (female), Vaginal yeast infection Pharyngitis Qualifiers: Pharyngitis/tonsillitis etiology: unspecified etiology Qualified Code(s): J02.9 - Acute pharyngitis, unspecified Condition: Stable Disposition: HOME, SELF-CARE Instructions: Sore Throat ([facility]) Additional Instructions: Avoid any sexual contact until all partners are treated; use condoms or spermicide routinely; take medicines as directed. Follow-up with health department for repeat RPR and HIV in 1 month. May use Diflucan by mouth for your yeast as well as vaginal clotrimazole for discomfort and vaginal pudendal area. May use Listerine sensitivity has a swish and spit for your pharyngitis and possible STD induced sore throat. Prescriptions: Clotrimazole 1 applic VG DAILY #1 cream.appl Fluconazole [Diflucan] 150 mg PO DAILY #2 tablet Doxycycline Monohydrate 100 mg PO BID 7 Days #14 capsule Metronidazole [Flagyl 500 mg Tablet] 500 mg PO BID 5 Days #10 tablet Forms: Return to Work
[2020-07-05] MEDS ORDERED: CEFTRIAXONE INJ 1000 MG VIAL IM ONE (20:42)
[2020-07-05] MEDS ORDERED: AZITHROMYCIN 250 MG TABLET PO ONE (20:43)
[2020-07-05] MEDS ORDERED: DEXAMETHASONE 4 MG TABLET PO ONE (20:44)
[2020-07-05 21:12] LABS: BACTERIA (WET MOUNT) 4+ BACTERIA SEEN; EPITHELIALS (WET MOUNT) 4+ EPITHELIALS SEEN; T.VAGINALIS (WET MOUNT) NO TRICHOMONAS SEEN; WBCS (WET MOUNT) 1+ WBCS SEEN; YEAST (WET MOUNT) YEAST SEEN
[2020-07-05] MEDS ORDERED: LIDOCAINE 1% INJ-PF (10 MG/ML) 30 ML SDV ONE (21:13)
[2020-07-05 21:23] VITALS: BP 117/100
[2020-07-05 22:30] LABS: CHLAM PCR NOT DETECTED (NOT DETECT)
== END 2020-07-05 21:49 | disposition home or self-care (01) ==
LOC: ER 15:57
DX: J02.9 Acute pharyngitis, unspecified (principal); N89.8 Other specified noninflammatory disorders of vagina; B37.3 Candidiasis of vulva and vagina; F17.210 Nicotine dependence, cigarettes, uncomplicated; Z20.2 Contact with and (suspected) exposure to infections with a predominantly sexual mode of transmission
CPT/HCPCS: 99284; 96372; 87491 ×2; 87591 ×2; 36415; 87070; 87210; 87880; 81025; 81001; J8540; J0696